=== PATIENT | female | born 1930 | race Caucasian/White ===

== ENCOUNTER 2019-07-28 16:30 | Inpatient (IN) | payer OTHER, MEDICAID, SELFPAY ==
[~2019-07-28] VITALS: Ht 167.6 cm; Wt 88.0 kg
[2019-07-28 16:38] VITALS: BP_SYST 127
[2019-07-28] MEDS ORDERED: DOCU-144 PO (17:04)
[2019-07-28] MEDS ORDERED: LIP10 PO (17:04)
[2019-07-28] MEDS ORDERED: MOM PO (17:04)
[2019-07-28] MEDS ORDERED: VITD2000 PO (17:04)
[2019-07-28] MEDS ORDERED: ACET-2165 PO (17:04)
[2019-07-28] MEDS ORDERED: OMEP10CA5 PO (17:04)
[2019-07-28] MEDS ORDERED: MEMA10TA PO (17:04)
[2019-07-28] MEDS ORDERED: MULT-1117 PO (17:04)
[2019-07-28] MEDS ORDERED: ASPI-1153 PO (17:04)
[2019-07-28] MEDS ORDERED: CALC-1276 PO (17:04)
[2019-07-28] MEDS ORDERED: DONE10TA44 PO (17:04)
[2019-07-28 17:16] LABS: BASOPHILS % (AUTO) 0.2 % (0.0-2.0); EOSINOPHILS # (AUTO) 0.1 K/uL (0.0-0.4); EOSINOPHILS % (AUTO) 1.9 % (0.0-4.0); HEMATOCRIT 32.8 % (36-48); LYMPHOCYTES # (AUTO) 1.5 K/uL (1.0-5.5); LYMPHOCYTES % (AUTO) 38.4 % (20.5-51.5); MEAN CORPUSCULAR HEMOGLOBIN 30 pg (27-31); MEAN CORPUSCULAR HGB CONC 33 % (32-36); MEAN CORPUSCULAR VOLUME 90 fL (79.0-98.0); MONOCYTES # (AUTO) 1.1 K/uL (0.0-1.0); MONOCYTES % (AUTO) 26.9 % (1.7-9.3); NEUTROPHILS # (AUTO) 1.3 K/uL (1.8-7.7); NEUTROPHILS % (AUTO) 32.6 % (40.0-70.0); PLATELET COUNT (AUTO) 150 K/uL (130-430); RED BLOOD CELL COUNT(AUTO) 3.64 MIL/uL (4.2-6.2); RED CELL DISTRIBUTION WIDTH 13.6 % (9.0-15.0)
[2019-07-28 17:22] LABS: BILIRUBIN,URINE NEGATIVE (NEGATIVE); COLOR,URINE YELLOW (YELLOW); GLUCOSE,URINE NEGATIVE (NEGATIVE); KETONES,URINE NEGATIVE (NEGATIVE); LEUKOCYTE ESTERASE ,URINE 3+ (NEGATIVE); NITRITE, URINE POSITIVE (NEGATIVE); PH,URINE 6.5 (5.0-8.0); PROTEIN URINE NEGATIVE (NEGATIVE); UROBILINOGEN,URINE 0.2 (0.2-1.0)
[2019-07-28 17:24] LABS: BLOOD, URINE TRACE (NEGATIVE); CLARITY/URINE HAZY (CLEAR)
[2019-07-28 17:30] LABS: BACTERIA,URINE MODERATE /HPF (None Seen); RBC,URINE NONE SEEN /HPF (0-3); WBC,URINE 50-80 /HPF (0-3)
[2019-07-28 17:31] LABS: MUCUS,URINE None Seen /LPF (None Seen)
[2019-07-28 17:47] LABS: ANION GAP 2 (5-15); CALCIUM 8.5 mg/dL (8.4-11.0); CHLORIDE 107 mmol/L (98-107); CREATININE 0.84 mg/dL (0.55-1.30); GLUCOSE 103 mg/dL (70-99); POTASSIUM 4.2 mmol/L (3.5-5.1); SODIUM SERUM 141 mmol/L (136-145); UREA NITROGEN, BLOOD 17 mg/dL (8-21)
[2019-07-28 17:56] LABS: ALANINE AMINOTRANSFERASE 24 U/L (12-78); ALBUMIN 2.9 g/dL (3.4-4.8); ASPARTATE AMINOTRANSFERASE 21 U/L (10-37); TOTAL BILIRUBIN 0.3 mg/dL (0.0-1.0)
[2019-07-28] MEDS ORDERED: cefTRIAXone 1 GM IVPB PREMIX 50 ML IV ONE (18:15)
[2019-07-28 19:10] VITALS: BP_SYST 138
[2019-07-28] MEDS ORDERED: PIPERACILLIN/TAZOBACTAM 2.25 GM VIAL IV ONE (21:40)
[2019-07-28] MEDS: PIPERACILLIN/TAZO 2.25G/DEX-IS 50 ML IV SCH (23:17)
[2019-07-29] VITALS: BP_SYST 140
[2019-07-29] MEDS: PIPERACILLIN/TAZO 2.25G/DEX-IS 50 ML IV SCH ×3 (06:45→21:10)
[2019-07-29 08:00] VITALS: BP_SYST 141
[2019-07-29 12:00] VITALS: BP_SYST 142
[2019-07-29] MEDS ORDERED: ALBUTEROL MDI INHALATION 8 GM INH INH PRN (15:30)
[2019-07-29] MEDS ORDERED: ACETAMINOPHEN 325 MG TABLET PO PRN (15:30)
[2019-07-29] MEDS ORDERED: ACETAMINOPHEN 325 MG TABLET PO SCH ×2 (15:30)
[2019-07-29] MEDS ORDERED: LORazepam 2 MG/ML VIAL IVP ONE (17:30)
[2019-07-29 17:49] VITALS: BP_SYST 140
[2019-07-29 20:00] VITALS: BP_SYST 136
[2019-07-29] MEDS: DONEPEZIL HCL 5 MG TABLET (ARICEPT) PO SCH (21:08)
[2019-07-29] MEDS: ATORVASTATIN 10 MG TABLET PO SCH (21:09)
[2019-07-29] MEDS: CALCIUM CARBONATE/VITAMIN D3 1 TAB TABLET PO SCH (21:09)
[2019-07-29] MEDS: MEMANTINE HCL 5 MG TABLET PO SCH (21:09)
[2019-07-30] VITALS: BP_SYST 143
[2019-07-30] MEDS: PIPERACILLIN/TAZO 2.25G/DEX-IS 50 ML IV SCH ×3 (06:45→22:00)
[2019-07-30 07:06] LABS: BASOPHILS % (AUTO) 0.8 % (0.0-2.0); EOSINOPHILS # (AUTO) 0.1 K/uL (0.0-0.4); EOSINOPHILS % (AUTO) 1.4 % (0.0-4.0); HEMATOCRIT 36.3 % (36-48); HEMOGLOBIN 11.9 g/dL (12.0-16.0); LYMPHOCYTES # (AUTO) 1.5 K/uL (1.0-5.5); LYMPHOCYTES % (AUTO) 31.7 % (20.5-51.5); MEAN CORPUSCULAR HEMOGLOBIN 30 pg (27-31); MEAN CORPUSCULAR HGB CONC 33 % (32-36); MEAN CORPUSCULAR VOLUME 91 fL (79.0-98.0); MONOCYTES # (AUTO) 1.2 K/uL (0.0-1.0); NEUTROPHILS # (AUTO) 1.9 K/uL (1.8-7.7); NEUTROPHILS % (AUTO) 41.1 % (40.0-70.0); PLATELET COUNT (AUTO) 173 K/uL (130-430); RED BLOOD CELL COUNT(AUTO) 3.97 MIL/uL (4.2-6.2); RED CELL DISTRIBUTION WIDTH 13.8 % (9.0-15.0); WHITE BLOOD COUNT (AUTO) 4.7 K/uL (4.8-10.8)
[2019-07-30 07:18] LABS: INR 1.1 (0.8-1.2); PROTHROMBIN TIME 11.3 SECS (9.5-12.5)
[2019-07-30 07:25] LABS: ALANINE AMINOTRANSFERASE 21 U/L (12-78); ALBUMIN 2.9 g/dL (3.4-4.8); ANION GAP 6 (5-15); ASPARTATE AMINOTRANSFERASE 21 U/L (10-37); CALCIUM 8.4 mg/dL (8.4-11.0); CHLORIDE 107 mmol/L (98-107); CREATININE 0.89 mg/dL (0.55-1.30); GLUCOSE 90 mg/dL (70-99); POTASSIUM 3.9 mmol/L (3.5-5.1); SODIUM SERUM 144 mmol/L (136-145); TOTAL BILIRUBIN 0.4 mg/dL (0.0-1.0); UREA NITROGEN, BLOOD 12 mg/dL (8-21)
[2019-07-30 07:55] LABS: C-REACTIVE PROTEIN QUANT 1.2 mg/dL (0-0.5); LACTATE DEHYDROGENASE 343 U/L (81-234)
[2019-07-30 08:00] VITALS: BP_SYST 122
[2019-07-30 09:12] LABS: ERYTHROCYTE SEDIMENTATION RATE 42 MM/HR (0-20)
[2019-07-30] MEDS: DOCUSATE SODIUM 100 MG CAPSULE PO SCH (09:46)
[2019-07-30] MEDS: PANTOPRAZOLE SODIUM 40 MG TAB PO SCH (09:47)
[2019-07-30] MEDS: CHOLECALCIFEROL (VITAMIN D3) 2,000 UNIT TABLET PO SCH (09:47)
[2019-07-30] MEDS: ASPIRIN 81 MG TABLET(ECOTRIN) PO SCH (09:47)
[2019-07-30] MEDS: MULTIVITAMINS TAB 1 TABLET PO SCH (09:47)
[2019-07-30] MEDS: CALCIUM CARBONATE/VITAMIN D3 1 TAB TABLET PO SCH ×2 (09:47→21:00)
[2019-07-30] MEDS: MEMANTINE HCL 5 MG TABLET PO SCH ×2 (09:47→21:00)
[2019-07-30 12:00] VITALS: BP_SYST 125
[2019-07-30 18:22] VITALS: BP_SYST 138
[2019-07-30 20:00] VITALS: BP_SYST 131
[2019-07-30] MEDS: ATORVASTATIN 10 MG TABLET PO SCH (21:00)
[2019-07-30] MEDS: DONEPEZIL HCL 5 MG TABLET (ARICEPT) PO SCH (21:00)
[2019-07-31] VITALS: BP_SYST 129
[2019-07-31] MEDS: PIPERACILLIN/TAZO 2.25G/DEX-IS 50 ML IV SCH ×3 (06:53→21:56)
[2019-07-31 07:28] LABS: BASOPHILS % (AUTO) 0.9 % (0.0-2.0); EOSINOPHILS # (AUTO) 0.1 K/uL (0.0-0.4); EOSINOPHILS % (AUTO) 1.5 % (0.0-4.0); HEMATOCRIT 37.2 % (36-48); HEMOGLOBIN 12.1 g/dL (12.0-16.0); LYMPHOCYTES # (AUTO) 1.8 K/uL (1.0-5.5); LYMPHOCYTES % (AUTO) 33.6 % (20.5-51.5); MEAN CORPUSCULAR HEMOGLOBIN 30 pg (27-31); MEAN CORPUSCULAR HGB CONC 33 % (32-36); MEAN CORPUSCULAR VOLUME 92 fL (79.0-98.0); MONOCYTES # (AUTO) 1.3 K/uL (0.0-1.0); MONOCYTES % (AUTO) 23.6 % (1.7-9.3); NEUTROPHILS # (AUTO) 2.2 K/uL (1.8-7.7); NEUTROPHILS % (AUTO) 40.4 % (40.0-70.0); RED BLOOD CELL COUNT(AUTO) 4.05 MIL/uL (4.2-6.2); RED CELL DISTRIBUTION WIDTH 13.9 % (9.0-15.0); WHITE BLOOD COUNT (AUTO) 5.3 K/uL (4.8-10.8)
[2019-07-31 07:44] LABS: ALANINE AMINOTRANSFERASE 26 U/L (12-78); ALBUMIN 2.8 g/dL (3.4-4.8); ANION GAP 8 (5-15); ASPARTATE AMINOTRANSFERASE 26 U/L (10-37); CALCIUM 8.5 mg/dL (8.4-11.0); CHLORIDE 105 mmol/L (98-107); CREATININE 1.02 mg/dL (0.55-1.30); GLUCOSE 99 mg/dL (70-99); POTASSIUM 4.2 mmol/L (3.5-5.1); SODIUM SERUM 141 mmol/L (136-145); TOTAL BILIRUBIN 0.4 mg/dL (0.0-1.0); UREA NITROGEN, BLOOD 18 mg/dL (8-21)
[2019-07-31 08:27] LABS: PLATELET COUNT (AUTO) 147 K/uL (130-430)
[2019-07-31 08:30] VITALS: BP_SYST 141
[2019-07-31] MEDS: DOCUSATE SODIUM 100 MG CAPSULE PO SCH (09:45)
[2019-07-31] MEDS: CHOLECALCIFEROL (VITAMIN D3) 2,000 UNIT TABLET PO SCH (09:45)
[2019-07-31] MEDS: PANTOPRAZOLE SODIUM 40 MG TAB PO SCH (09:45)
[2019-07-31] MEDS: MEMANTINE HCL 5 MG TABLET PO SCH ×2 (09:45→21:56)
[2019-07-31] MEDS: CALCIUM CARBONATE/VITAMIN D3 1 TAB TABLET PO SCH ×2 (09:45→21:56)
[2019-07-31] MEDS: ASPIRIN 81 MG TABLET(ECOTRIN) PO SCH (09:45)
[2019-07-31] MEDS: MULTIVITAMINS TAB 1 TABLET PO SCH (09:45)
[2019-07-31] MEDS: LORazepam 2 MG/ML VIAL IVP PRN ×3 (10:53→21:56)
[2019-07-31 12:00] VITALS: BP_SYST 126
[2019-07-31 16:00] VITALS: BP_SYST 143
[2019-07-31 20:00] VITALS: BP_SYST 147
[2019-07-31] MEDS: DONEPEZIL HCL 5 MG TABLET (ARICEPT) PO SCH (21:56)
[2019-07-31] MEDS: ATORVASTATIN 10 MG TABLET PO SCH (21:56)
[2019-08-01] VITALS: BP_SYST 107
[2019-08-01] MEDS: PIPERACILLIN/TAZO 2.25G/DEX-IS 50 ML IV SCH ×2 (05:39→13:54)
[2019-08-01 07:02] LABS: BASOPHILS % (AUTO) 0.4 % (0.0-2.0); EOSINOPHILS # (AUTO) 0.1 K/uL (0.0-0.4); EOSINOPHILS % (AUTO) 1.9 % (0.0-4.0); HEMATOCRIT 34.5 % (36-48); HEMOGLOBIN 11.4 g/dL (12.0-16.0); LYMPHOCYTES # (AUTO) 1.5 K/uL (1.0-5.5); LYMPHOCYTES % (AUTO) 30.9 % (20.5-51.5); MEAN CORPUSCULAR HEMOGLOBIN 30 pg (27-31); MEAN CORPUSCULAR HGB CONC 33 % (32-36); MEAN CORPUSCULAR VOLUME 91 fL (79.0-98.0); MONOCYTES # (AUTO) 1.3 K/uL (0.0-1.0); MONOCYTES % (AUTO) 28.2 % (1.7-9.3); NEUTROPHILS # (AUTO) 1.8 K/uL (1.8-7.7); NEUTROPHILS % (AUTO) 38.6 % (40.0-70.0); PLATELET COUNT (AUTO) 169 K/uL (130-430); RED BLOOD CELL COUNT(AUTO) 3.78 MIL/uL (4.2-6.2); RED CELL DISTRIBUTION WIDTH 14.1 % (9.0-15.0); WHITE BLOOD COUNT (AUTO) 4.7 K/uL (4.8-10.8)
[2019-08-01 07:23] LABS: ALANINE AMINOTRANSFERASE 31 U/L (12-78); ANION GAP 4 (5-15); ASPARTATE AMINOTRANSFERASE 24 U/L (10-37); CALCIUM 8.7 mg/dL (8.4-11.0); CHLORIDE 106 mmol/L (98-107); CREATININE 0.97 mg/dL (0.55-1.30); GLUCOSE 104 mg/dL (70-99); POTASSIUM 4.3 mmol/L (3.5-5.1); SODIUM SERUM 141 mmol/L (136-145); TOTAL BILIRUBIN 0.4 mg/dL (0.0-1.0); UREA NITROGEN, BLOOD 21 mg/dL (8-21)
[2019-08-01 08:00] VITALS: BP_SYST 108
[2019-08-01] MEDS: MULTIVITAMINS TAB 1 TABLET PO SCH (08:04)
[2019-08-01] MEDS: ASPIRIN 81 MG TABLET(ECOTRIN) PO SCH (08:04)
[2019-08-01] MEDS: DOCUSATE SODIUM 100 MG CAPSULE PO SCH (08:04)
[2019-08-01] MEDS: CHOLECALCIFEROL (VITAMIN D3) 2,000 UNIT TABLET PO SCH (08:05)
[2019-08-01] MEDS: PANTOPRAZOLE SODIUM 40 MG TAB PO SCH (08:05)
[2019-08-01] MEDS: MEMANTINE HCL 5 MG TABLET PO SCH (08:05)
[2019-08-01] MEDS: CALCIUM CARBONATE/VITAMIN D3 1 TAB TABLET PO SCH (08:05)
[2019-08-01 12:00] VITALS: BP_SYST 124
[2019-08-01] MEDS ORDERED: NITR-85 PO (13:58)
[2019-08-01 14:22] VITALS: BP_SYST 124
== END 2019-08-01 16:15 | DRG 178 ==
LOC: SED 16:30 → EEVIPCON 18:15 → STU 18:15
PROVIDERS: ADMIT Internal Medicine Infectious Disease; ATTEND Internal Medicine Infectious Disease
DX: U07.1 COVID-19 (principal); N39.0 Urinary tract infection, site not specified; J44.9 Chronic obstructive pulmonary disease, unspecified; F03.90 Unspecified dementia, unspecified severity, without behavioral disturbance, psychotic disturbance, mood disturbance, and anxiety; F17.210 Nicotine dependence, cigarettes, uncomplicated; R45.4 Irritability and anger; B96.20 Unspecified Escherichia coli [E. coli] as the cause of diseases classified elsewhere; Z79.82 Long term (current) use of aspirin; Z79.899 Other long term (current) drug therapy; H54.61 Unqualified visual loss, right eye, normal vision left eye
CPT/HCPCS: 36415; 71045; 80053; 81000-TC; 82728; 83605; 83615-TC; 84484; 85025; 85379; 85384-TC; 85610-TC; 85651-TC; 85730-TC; 86140; 86886; 86900; 86901; 87040-TC; 87081; 87086; 87186-TC; 96365; 99285; G0378; J0696; J2060; J2543; J7060; U0002